=== PATIENT | male | born 2005 | race Caucasian/White ===

== ENCOUNTER 2025-08-23 08:17 | Emergency (ER) | payer BC, SELFPAY ==
--- NOTE | ~2025-08-23 | CT_ITS ---
CT abdomen pelvis w con Clinical History: abdominal pain . Comparison: None Technique: Axial images lung bases to symphysis pubis 100 mL Omnipaque 350 Coronal, sagittal reformats CT images acquired with automatic exposure control for dose reduction DLP: 432 mGy-cm Findings: Lung bases: Clear. Visualized heart and pericardium: Unremarkable. Liver: Unremarkable. Gallbladder: Unremarkable. Spleen: Unremarkable. Pancreas: Unremarkable. Adrenal glands: Unremarkable. Kidneys: Right kidney- No hydronephrosis. No renal stones. Small cortical cyst. Left kidney- No hydronephrosis. No renal stones. Distal esophagus/stomach: Unremarkable. Small bowel loops: Normal caliber and wall thickness. Colon: Normal caliber and wall thickness. Normal RLQ appendix. Liquid contents, air-fluid levels, consistent with diarrheal state. Nodes: No enlarged nodes. Multiple small mediastinal nodes. Peritoneum: No ascites. No free air. Urinary bladder: Unremarkable. Prostate: Unremarkable. Bones: No acute bony abnormality. Soft tissues: Unremarkable. Aorta: No aneurysm or dissection. IVC: Unremarkable. Main portal vein/SMV/splenic vein: Patent. IMPRESSION: 1. Mesenteric adenitis, with diarrheal state. Reviewed, dictated and finalized at location [facility]
[2025-08-23 08:19] VITALS: BP 143/85; PULSE 86; RESP 16; TEMP 36.6; O2SAT 100
[2025-08-23] MEDS: LACTATED RINGERS 1,000 ML 999 ML IV CONT (11:56)
[2025-08-23] MEDS: ONDANSETRON INJ 4 MG/2 ML VIAL IV PUSH (11:56)
[2025-08-23] MEDS: ACETAMINOPHEN 500 MG TABLET 1000 MG PO (11:56)
[2025-08-23 12:01] LABS: Hematocrit 47.5 % (42.0-52.0); Hemoglobin 16.7 g/dL (14.0-18.0); Immature Granulocyte Percent A 0.4 % (0-0.5); Lymphocytes Absolute Auto 1.07 K/mm3 (0.9-3.2); Mean Corpuscular HGB Conc 35.2 g/dl (32-36); Mean Corpuscular Hemoglobin 28.9 pg (26-34); Mean Corpuscular Volume 82.3 fl (80-100); Nucleated Red Blood Cells Absolute Auto 0.000 K/mm3 (0.0-0.012); Nucleated Red Blood Cells Perc 0.0 % (0.0-0.2); Platelet Count Result 199 k/mm3 (150-375); Red Blood Count 5.77 M/mm3 (4.6-6.20); White Blood Count 9.5 K/mm3 (4.5-10.0)
[2025-08-23 12:21] LABS: Lipase 20 U/L (23-300)
[2025-08-23 12:22] LABS: Alanine Aminotransferase 40 U/L (6-50); Albumin Level 4.7 g/dL (3.7-5.6); Alkaline Phosphatase 96 U/L (58-237); Anion Gap 10 mmol/L (4-12); Aspartate Amino Transferase 42 U/L (17-59); Bilirubin,Total 1.3 mg/dL (0.2-1.3); Blood Urea Nitrogen 12 mg/dL (8-21); Calcium 9.5 mg/dL (8.9-10.7); Carbon Dioxide 23 mmol/L (22-30); Chloride 104 mmol/L (98-107); Estimated CRCL calculation 122 ml/min; Estimated Glomerular Filt Rate > 60; Glucose 76 mg/dL (65-110); Potassium 4.5 mmol/L (3.4-5.0); Sodium 137 mmol/L (134-143); Total Protein 7.9 g/dL (6.3-8.6)
[2025-08-23 12:37] LABS: Influenza A QL RT-PCR Negative (Negative); Influenza B QL RT-PCR Negative (Negative); RSV RNA, RT-PCR Negative (Negative); SARS-CoV-2 RNA PCR Negative (Negative)
[2025-08-23] MEDS: KETOROLAC 30 MG/ML VIAL (*BKC) IV PUSH (13:23)
[2025-08-23] MEDS: SODIUM CHLORIDE 0.9% IV 1,000 ML 999 ML IV CONT (13:23)
--- NOTE | 2025-08-23 14:32 | ED_ITS ---
HPI - General Adult General Chief complaint: Nausea/Vomiting/Diarrhea Stated complaint: DIARRHEA X 4D Time Seen by Provider: 08/23/25 11:00 History of Present Illness HPI narrative: 19-year-old male presenting with diarrhea for the last 4 days. Patient also reports nausea, bloating, diffuse abdominal pain, subjective fevers/chills, and a decrease in appetite. He denies melena/hematochezia, urinary symptoms, chest pain/shortness of breath, or headaches. Related Data Allergies Allergy/AdvReac Type Severity Reaction Status Date / Time No Known Allergies Allergy Verified 08/23/25 08:19 Review of Systems 2 Review of Systems: All systems reviewed & are unremarkable except as noted in HPI and below Exam 2 Narrative: GENERAL: No acute distress. HEAD: Normocephalic, atraumatic. EYES: PERRLA and EOMI. ENT: Nares clear, no rhinorrhea or epistaxis. Mucous membranes moist. Oropharynx without tonsillar hypertrophy exudate or other lesions. Bilateral TMs pearly davila non-bulging NECK: Supple. No adenopathy or masses. No carotid bruits or JVD CHEST: Clear to auscultation. No respiratory distress. No wheezes rales or rhonchi HEART: Regular rate and rhythm. No murmur heard. Normal peripheral pulses. ABDOMEN: Soft, nondistended, normal active bowel sounds. Mild diffuse TTP in all quadrants. EXTREMITIES: Normal range of motion. No edema. SKIN: Warm, dry, no rash. NEURO: No focal deficits. Alert and oriented x3. PSYCH: Normal mood and affect Course Vital Signs Vital signs: Vital Signs Temperature 98 F 08/23/25 08:19 Pulse Rate 86 08/23/25 08:19 Respiratory Rate 16 08/23/25 08:19 Blood Pressure 143/85 H 08/23/25 08:19 Pulse Oximetry 100 08/23/25 08:19 Oxygen Delivery Room Air 08/23/25 08:19 Temperature 98 F 08/23/25 08:19 Pulse Rate 86 08/23/25 08:19 Respiratory Rate 16 08/23/25 08:19 Blood Pressure 143/85 H 08/23/25 08:19 Pulse Oximetry 100 08/23/25 08:19 Oxygen Delivery Room Air 08/23/25 08:19 [facility] MDM Narrative Medical decision making narrative: 19-year-old male presenting with diarrhea for the last 4 days. Patient also reports nausea, bloating, diffuse abdominal pain, subjective fevers/chills, and a decrease in appetite. He denies melena/hematochezia, urinary symptoms, chest pain/shortness of breath, or headaches. Upon my initial assessment patient appears nontoxic and is afebrile with stable vitals. Labs within normal limits. Covid, Flu, RSV negative. Imaging demonstrates mesenteric adenitis. Administered 2 L of fluid, Zofran, Toradol, and Tylenol. Patient reports a vast improvement in his symptoms. Plan to discharge home with antiemetics and instructions for bowel rest through a bland diet and plenty of fluids. Patient agrees with discussion and after shared medical decision making agrees with plan of care. All questions were answered to the patient's satisfaction. The patient is appropriate for outpatient treatment and follow-up. Given reasons to return. Differential Diagnosis Differential Diagnosis: Differential diagnostic considerations for acute abdominal pain include surgical abdominal etiology, ischemic bowel, inflammatory bowel disease, gastritis, PUD, gastroenteritis, cardiac etiology, appendicitis, diverticulitis, bowel obstruction, kidney stone, pyelonephritis, abdominal aortic aneurysm, pancreatitis, constipation, endometriosis. Lab Data MDM Lab Attestation statement: I personally reviewed the patient's lab results. 08/23/25 11:53 08/23/25 11:53 Labs: Lab Results 08/23/25 Range/Units 11:53 WBC 9.5 (4.5-10.0) K/mm3 RBC 5.77 (4.6-6.20) M/mm3 Hgb 16.7 (14.0-18.0) g/dL Hct 47.5 (42.0-52.0) % MCV 82.3 (80-100) fl MCH 28.9 (26-34) pg MCHC 35.2 (32-36) g/dl RDW 11.9 (11.5-14.5) % Plt Count 199 (150-375) k/mm3 MPV 9.4 (7.4-10.4) fl Immature Gran % (Auto) 0.4 (0-0.5) % Neut % (Auto) 78.5 H (45.5-73.1) % Lymph % (Auto) 11.3 L (18.3-44.2) % [place] % (Auto) 8.4 (2.6-8.5) % Eos % (Auto) 1.1 (0-4.4) % Baso % (Auto) 0.3 (0.2-1.2) % Lymph # (Auto) 1.07 (0.9-3.2) K/mm3 [place] # (Auto) 0.8 H (0.1-0.6) K/mm3 Eos # (Auto) 0.1 (0-0.3) K/mm3 Baso # (Auto) 0.0 (0.0-0.1) K/mm3 Abs Immat Gran (auto) 0.04 H (0.00-0.031) K/mm3 Absolute Neuts (auto) 7.4 H (1.3-6.7) K/mm3 Absolute Nucleated RBC 0.000 (0.0-0.012) K/mm3 Nucleated RBC % 0.0 (0.0-0.2) % Sodium 137 (134-143) mmol/L Potassium 4.5 (3.4-5.0) mmol/L Chloride 104 (98-107) mmol/L Carbon Dioxide 23 (22-30) mmol/L Anion Gap 10 (4-12) mmol/L BUN 12 (8-21) mg/dL Creatinine 0.91 (0.7-1.3) mg/dL Estim Creat Clear Calc 122 ml/min Estimated GFR > 60 (59 - ) Glucose 76 (65-110) mg/dL Calcium 9.5 (8.9-10.7) mg/dL Total Bilirubin 1.3 (0.2-1.3) mg/dL AST 42 (17-59) U/L ALT 40 (6-50) U/L Alkaline Phosphatase 96 (58-237) U/L Total Protein 7.9 (6.3-8.6) g/dL Albumin 4.7 (3.7-5.6) g/dL Lipase 20 L (23-300) U/L Influenza A (RT-PCR) Negative (Negative) Influenza B (RT-PCR) Negative (Negative) RSV (RT-PCR) Negative (Negative) SARS-CoV-2 RNA (RT-PCR) Negative (Negative) Imaging Data Attestation: I personally reviewed and interpreted this imaging study as follows: Radiologist's impression: ITS Impressions Abdomen/Pelvis CT 08/23/25 13:02 IMPRESSION: 1. Mesenteric adenitis, with diarrheal state. Discharge Plan Discharge Clinical Impression: Mesenteric adenitis Patient Disposition: Home Condition: Stable Instructions: Dehydration (ED), Clear Liquid Diet (ED), Gastroenteritis (ED), Acute Diarrhea (ED) Additional Instructions: Return to the ER if you experience fever, abdominal pain with nausea and vomiting, you are unable to keep down liquids or solids, blood in the stool, pain or burning with urination, blood in the urine or any other symptoms that are concerning to you Small frequent meals. Rawlings diet. Hydrate. Take anti-nausea and antidiarrheal medications as needed. Follow up with primary care doctor. Patient Language: Green[place]ic Prescriptions: New ondansetron 4 mg tablet,disintegrating 4 mg PO Q6H PRN (Reason: nausea and vomiting) Qty: 20 0RF Follow-up/Referrals: Kaylen,Christiano Snyder MD [Primary Care Provider, Unknown]
== END 2025-08-23 14:38 | disposition home or self-care (01) ==
PROVIDERS: PCP Family Medicine
DX: I88.0 Nonspecific mesenteric lymphadenitis (principal); Z20.822 Contact with and (suspected) exposure to COVID-19
CPT/HCPCS: 36415; 74177; 80053; 83690; 85025; 87637; 96361; 96374; 96375; 99284; A9270; J1885; J2405; J7030; J7120; Q9967